=== PATIENT | female | born 1995 | race Caucasian/White ===

== ENCOUNTER 2018-06-04 20:04 | Emergency (ER) | payer MEDICAID ==
[~2018-06-04] VITALS: Ht 160 cm; Wt 90.7 kg
--- NOTE | 2018-06-04 20:16 | NUR ---
PT BIB FAMILY. TOOK TEST EARLIER THIS WEEK AND TESTED POSITIVE FOR . GRAVITA 1, PARA 0. "I WOULD LIKE TO KNOW WHERE I AM IN THIS ."LMP MIDDLE OF APRIL. AMBULATED TO HOSPITAL BED WITH STABLE GAIT. SKIN'S PINK, WARM, AND, DRY. AA/OX4. VSS. NAD. AWAITING EVAL/ORDERS.
--- NOTE | 2018-06-04 20:25 | NUR ---
Lex hirsch in ED - 06/04/18 at 2026 by GIULIA PT STATES, " I HAVE ONLY BEEN GOING TO A LOCAL CLINIC, I DON'T HAVE A PERSONAL OBGYN, AND HAVE NOT BEEN TAKING ANY VITAMINS." "NO SPOTTING BURNING WITH URINATION, BILATERAL FLANK PAIN X 1 WEEK."
--- NOTE | 2018-06-04 20:27 | NUR ---
PT STATES, " I HAVE ONLY BEEN GOING TO A LOCAL CLINIC, I DON'T HAVE A PERSONAL OBGYN, AND HAVE NOT BEEN TAKING ANY VITAMINS." "NO SPOTTING OR BURNING WITH URINATION, BILATERAL FLANK PAIN X 1 WEEK."
[2018-06-04 20:36] LABS: BILIRUBIN,URINE NEGATIVE (NEGATIVE); BLOOD, URINE NEGATIVE Ery/uL (NEGATIVE); COLOR,URINE YELLOW (YELLOW); KETONES,URINE NEGATIVE (NEGATIVE); LEUKOCYTE ESTERASE ,URINE 1+ (NEGATIVE); NITRITE, URINE NEGATIVE (NEGATIVE); PROTEIN,URINE NEGATIVE (NEGATIVE); UGLUCOSE NEGATIVE (NEGATIVE); UROBILINOGEN,URINE 0.2 EU/dL (0.2)
[2018-06-04 20:41] LABS: APPEARANCE,URINE SLIGHTLY CLOUDY (CLEAR)
[2018-06-04 21:00] LABS: BASOPHILS # (AUTO) 0.1 /CMM (0.0-0.2); BASOPHILS % (AUTO) 0.9 % (0.0-2.0); HEMATOCRIT 41 % (33-45); HEMOGLOBIN 13.7 g/dL (11.5-14.8); LYMPHOCYTES # (AUTO) 2.4 /CMM (0.8-4.8); LYMPHOCYTES % (AUTO) 19.5 % (20.0-44.0); MEAN CORPUSCULAR HEMOGLOBIN 30 PG (26.0-33.0); MEAN CORPUSCULAR HGB CONC 33 g/dl (31.0-36.0); MEAN CORPUSCULAR VOLUME 89 fL (82-100); MONOCYTES # (AUTO) 1.1 /CMM (0.1-1.30); MONOCYTES % (AUTO) 8.6 % (2.0-12.0); NEUTROPHILS # (AUTO) 8.5 /CMM (1.8-8.9); PLATELET COUNT (AUTO) 263 /CMM (150-450); RED BLOOD CELL COUNT(AUTO) 4.63 MIL/uL (4.0-5.2); WHITE BLOOD COUNT (AUTO) 12.2 K/uL (4.3-11.0)
--- NOTE | 2018-06-04 21:09 | NUR ---
Patient is resting comfortably in bed WITH FRIEND AT BEDSIDE. MARLON. MOSES.
[2018-06-04 21:24] LABS: BACTERIA,URINE Few /HPF (None Seen); RBC,URINE 0-2 /HPF (0-2); SQUAMOUS EPITHELIAL CELL,UR Few /HPF (None Seen)
[2018-06-04 21:32] LABS: ALBUMIN 3.5 g/dL (3.4-5.0); BILIRUBIN,DIRECT 0.1 mg/dL (0.0-0.2); BILIRUBIN,TOTAL 0.2 mg/dL (0.2-1.0); CALCIUM, SERUM 8.9 mg/dL (8.5-10.1); CREATININE 0.7 mg/dL (0.6-1.3); POTASSIUM 3.6 mmol/L (3.5-5.1); TOTAL PROTEIN, SERUM 7.5 g/dL (6.4-8.2)
--- NOTE | 2018-06-04 22:15 | NUR ---
ULTRASOUND AT BEDSIDE
--- NOTE | 2018-06-04 22:25 | NUR ---
Patient discharged to home in stable condition. Written and verbal after care instructions given. Patient verbalizes understanding of instruction. IV removed. Catheter intact and site benign. Pressure and 4x4 applied to site. No bleeding noted. ambulatory with a steady gait
[2018-06-04 23:38] VITALS: BP 126/71
== END 2018-06-04 23:40 | disposition home or self-care (01) ==
LOC: ER 20:06
DX: O23.41 Unspecified infection of urinary tract in pregnancy, first trimester (principal); Z3A.01 Less than 8 weeks gestation of pregnancy; Z88.0 Allergy status to penicillin
CPT/HCPCS: 36415; 76856; 80048; 80076; 81001; 84702; 85025; 87086; 99285; A4606; Z7610; 81000-TC

== ENCOUNTER 2021-12-21 10:30 | Emergency (ER) | payer OTHER ==
[~2021-12-21] VITALS: Ht 160 cm; Wt 81.6 kg
--- NOTE | 2021-12-21 10:42 | NUR ---
TO ER BED 7, BIBS C/O RLE NUMBNESS X 1 WEEK. PT FEBRILE [employer]. ORAL TEMP 98.4 UPON ARRIVAL, TOOK ADVIL 1 HOUR [employer], AAOX3, BREATHING EVEN AND NON LABORED, AWAITING MD TOMAS
[2021-12-21] MEDS ORDERED: ACETAMINOPHEN ES 500 MG TABLET ONE (10:49)
--- NOTE | 2021-12-21 10:58 | NUR ---
URINE COLLECTED AND SENT TO LAB
--- NOTE | 2021-12-21 10:59 | NUR ---
LAB AT BEDSIDE
[2021-12-21] MEDS ORDERED: ACETAMINOPHEN 325 MG TABLET PO ONE (11:00)
--- NOTE | 2021-12-21 11:04 | NUR ---
COVID SWABS DONE AND SENT TO LAB
[2021-12-21 11:29] LABS: BASOPHILS % (AUTO) 0.4 % (0.0-2.0); HEMATOCRIT 36 % (33-45); HEMOGLOBIN 12.1 g/dL (11.5-14.8); LYMPHOCYTES # (AUTO) 0.6 K/uL (0.8-4.8); LYMPHOCYTES % (AUTO) 5.1 % (20.0-44.0); MEAN CORPUSCULAR HGB CONC 34 g/dl (31.0-36.0); MEAN CORPUSCULAR VOLUME 86 fL (82-100); MONOCYTES # (AUTO) 0.9 K/uL (0.1-1.30); MONOCYTES % (AUTO) 7.2 % (2.0-12.0); NEUTROPHILS # (AUTO) 10.6 K/uL (1.8-8.9); NEUTROPHILS % (AUTO) 87.3 % (43.0-81.0); PLATELET COUNT (AUTO) 256 K/uL (150-450); RED BLOOD CELL COUNT(AUTO) 4.18 MIL/uL (4.0-5.2); WHITE BLOOD COUNT (AUTO) 12.1 K/uL (4.3-11.0)
[2021-12-21 11:33] LABS: CALCIUM, SERUM 8.6 mg/dL (8.5-10.1); CREATININE 0.9 mg/dL (0.6-1.3); MAGNESIUM 1.6 mg/dL (1.8-2.4); POTASSIUM 3.3 mmol/L (3.5-5.1)
[2021-12-21 11:50] LABS: BILIRUBIN,URINE NEGATIVE (NEGATIVE); COLOR,URINE YELLOW (YELLOW); LEUKOCYTE ESTERASE ,URINE SMALL (NEGATIVE); NITRITE, URINE NEGATIVE (NEGATIVE); PROTEIN,URINE NEGATIVE (NEGATIVE); UGLUCOSE NEGATIVE (NEGATIVE); UROBILINOGEN,URINE 0.2 EU/dL (0.2)
--- NOTE | 2021-12-21 12:00 | NUR ---
DISTRICT REPRESENTATIVE AT BEDSIDE TO DRAW BLOOD FOR BLOOD C/S
[2021-12-21 12:10] LABS: BACTERIA,URINE Few /HPF (None Seen); RBC,URINE 0-2 /HPF (0-2); SQUAMOUS EPITHELIAL CELL,UR Few /HPF (None Seen); WBC,URINE 51-80 /HPF (0-3)
--- NOTE | 2021-12-21 12:30 | NUR ---
ACCOMPANIED DR LEA TO THE ROOM TO DO PELVIC EXAM TO THE PATIENT. ABLE TO SEND SAMPLE TO LAB FOR WET MOUNT.
[2021-12-21] MEDS ORDERED: DOXYCYCLINE HYCLATE (100 MG) 100 MG TABLET PO ONE (13:00)
[2021-12-21] MEDS ORDERED: CEFTRIAXONE 1 G VIAL IM ONE (13:00)
[2021-12-21] MEDS ORDERED: CEFTRIAXONE 1 G VIAL ONE (13:24)
[2021-12-21] MEDS ORDERED: LIDOCAINE /MPF 1% VIAL 5 ML VIAL ONE (13:25)
[2021-12-21] MEDS ORDERED: DOXYCYCLINE HYCLATE (100 MG) 100 MG TABLET ONE (13:25)
--- NOTE | 2021-12-21 13:28 | NUR ---
US AT BEDSIDE
[2021-12-21] MEDS ORDERED: DOXY100T2 PO (13:49)
--- NOTE | 2021-12-21 14:00 | NUR ---
Patient discharged to home in stable condition. Written and verbal after care instructions given. Patient verbalizes understanding of instruction.
[2021-12-21 14:01] VITALS: BP 114/60
== END 2021-12-21 14:01 | disposition home or self-care (01) ==
LOC: ER 10:36
DX: R50.9 Fever, unspecified (principal); Z20.822 Contact with and (suspected) exposure to COVID-19; R82.81 Pyuria; R10.2 Pelvic and perineal pain
CPT/HCPCS: 36415; 76856; 80048; 81001; 83605; 83735; 84703; 85025; 87040 ×2; 87086; 87210; 87426; 87491; 87591; 96372; 99284; C9803 ×2; J0696; J3490; U0003